=== PATIENT | male | born 1965 | race Caucasian/White ===

== ENCOUNTER 2023-01-11 07:00 | Outpatient (RCR) | payer OTHER, SELFPAY ==
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
--- NOTE | 2023-01-11 07:49 | HP.PTREVAL_ITS ---
Re-Evaluation Intro: MARY FIGUEROA, It has been my pleasure to treat WILBERT JACOB over the last 7 visits for CERV DDD, CERV ARTHRITIS, ARM WEAKNESS AND ARM NUMBNESS. Please see the progress note below for an update on the physical therapy plan of care! Subjective Subjective: PATIENT REPORTS HE DID PRETTY GOOD AFTER LAST TREATMENT. PATIENT REPORTS HE COULDN'T GET COMFORTABLE LAST NIGHT AND IT IS MORE STIFF THIS MORNING FOR NO APPARENT REASON. I THINK MAYBE MY SYMPTOMS ARE plateauing. Objective Objective/Function: PATIENT WAS SEEN TODAY FOR RE-ASSESSMENT OF PROGRESS TOWARD THE SET PT GOALS AND THE NEED FOR FURTHER PHYSICAL THERAPY VS READINESS FOR DISCHARGE. PATIENT HAS MADE SOME PROGRESS WITH PT BUT CONTINUES TO HAVE SIGNIFICANT SX'S AND PHYSICIAN RE-ASSESSMENT IS RECOMMENDED. PATIENT IS AGREEABLE. UPON EXAM TODAY: Motor deficit: PJ UE'S GROSSLY 5/5 WITH MMT'ING WITH R SOFTWARE TEST DEVELOPER STRENGTH 101 LBS AND LEFT 85 LBS. PATIENT IS R HAND DOMINANT. Dural Signs: POSITIVE PJ UE'S L>R. Cervical Mvmt Loss: Flex: NIL - NECK BURNING Pro: NIL - NECK BURNING Ext: MOD - NE Ret: MOD- NE EXCEPT A LITTLE NECK TIGHTNESS. RSB: MIN LSB: MIN R Rot: MIN L Rot: MIN PJ ROT AND SB TESTING PROVOKE CO OF A LITTLE NECK TIGHTNESS. NW A RESULT OF TESTING TODAY. OTHER: HEP INSTRUCTION. PATIENT TOLERATED TRACTION WELL TODAY AND DEMO'D INCREASED CERVICAL ROM AFTER TRACTION INTO PJ SB. Plan Plan Plan: HOLD PT UNTIL PHYSICIAN RE-CHECK Balance/Gait/Functional tests Balance/Special Test Scores Oswestry Neck Score: 18 Goals Goals Goal 1:: DECREASE C/O NECK AND PJ UE SX'S Goal Time Frame: 4-6 Weeks Goal 2:: IMPROVE PERSONAL CARE, LIFTING, READING, SLEEP, WORK, DRIVING, AND RECREATIONAL FUNCTION Goal Time Frame: 4-6 Weeks Goal 3:: INSTRUCT IN PROPHYLAXIS Goal Time Frame: 4-6 Weeks Anticipated Interventions Anticipated Interventions Patient/Client Instruction: Educate patient on: Condition, Plan of Care and Risk Factors For the Purpose of:: To improve self management Therapeutic Exercise to Include: Strength training, Body mechanics, Postural training, Flexibilty training, Neuromotor development and Scapular St rength/Stabilization For the Purpose of:: To decrease pain, To increase ROM, To improve muscle performance and motor function, To increase tolerance to activity/condition/position and To improve ability of physical actions for home/community/work/leisure Manual Therapy Techniques to Include: Mobilization, Functional dry needling and Soft tissue mobilization For the Purpose of:: To decrease pain, To increase ROM, To improve nutrient delivery to tissue, To improve muscle performance and motor function, To increase tolerance to activity/condition/position and To improve ability of physical actions for home/community/work/leisure Ultrasound (thermal/non thermal): Yes For the Purpose of:: To decrease pain and To improve nutrient delivery to tissue Re-Evaluation Ending Re-evaluation ending: Please do not hesitate to contact me at [phone] by phone or if you have questions or concerns regarding this new plan of care! Sincerely, Maricarmen Rodriguez, PT, Cert MDT
--- NOTE | 2023-03-12 13:25 | HP.PTDCNRP_ITS ---
Patient Information Patient Information: WILBERT JACOB was seen in my office for initial evaluation on 12/11/22. The following Plan of Care was established for this patient: POC Established Initial Frequency: 1-2x /Week Initial Duration: 4-6 Weeks Anticipated Interventions Patient/Client Instruction: Educate patient on: Condition, Plan of Care and Risk Factors For the Purpose of:: To improve self management Therapeutic Exercise to Include: Strength training, Body mechanics, Postural training, Flexibilty training, Neuromotor development and Scapular Strength/Stabilization For the Purpose of:: To decrease pain, To increase ROM, To improve muscle performance and motor function, To increase tolerance to activity /condition/position and To improve ability of physical actions for home/community/work/leisure Manual Therapy Techniques to Include: Mobilization, Functional dry needling and Soft tissue mobilization For the Purpose of:: To decrease pain, To increase ROM, To improve nutrient delivery to tissue, To improve muscle performance and motor function, To inc rease tolerance to activity/condition/position and To improve ability of physical actions for home/community/work/leisure Ultrasound (thermal/non thermal): Yes For the Purpose of:: To decrease pain and To improve nutrient delivery to tissue Last Seen Last Seen: This patient was last seen in our office 01/11/23. Pertinent comments regarding their Physical therapy will appear below: This patient has not returned to Physical Therapy and is appropriate to return to MD for further follow-up as needed. At this point I will be discontinuing this patient from physical therapy. I would be happy to see this patient again in the future if found appropriate by the physician. Thank you! Maricarmen Rodriguez, PT, Cert MDT Balance/Gait/Functional tests Balance/Special Test Scores Oswestry Neck Score: 18
== END 2023-01-11 19:00 | disposition home or self-care (01) ==
LOC: PT 07:00
DX: M50.30 Other cervical disc degeneration, unspecified cervical region (principal); M47.812 Spondylosis without myelopathy or radiculopathy, cervical region; M62.81 Muscle weakness (generalized)
CPT/HCPCS: 97012; 97035; 97112; 97140; 97162; 97164; 97530

== ENCOUNTER → 2025-04-22 | Outpatient (CLI) | payer OTHER, SELFPAY ==
--- NOTE | 2025-04-22 07:20 | US_ITS ---
PROCEDURE: ABDOMEN LIMITED 04/22/2025 REASON FOR EXAM: LUQ PAIN TECHNIQUE: Procedure Code: USABDL Modality: US Procedure: ABDOMEN LIMITED COMPARISON: None FINDINGS: Spleen: Normal. 10.1 x 4.2 x 4.1 cm. Left kidney: 11.2 x 5.4 x 4.5 cm. The renal cortex measures 1.4 cm in thickness. There is an upper pole calyceal stone measuring 5 mm. There is an upper pole cortical cyst measuring 1.6 x 1.5 x 1.3 cm. The cyst appears to have a mural nodule. Pancreas: Normal. Other: No evidence of ascites. US/Abdomen Limited IMPRESSION: Cortical cyst with a mural nodule in the left kidney. Recommendation: MR imaging of the abdomen with and without IV contrast. Reading Location: [place] [id number]
--- OUTSIDE RECORDS SUMMARY | 2025-04-22 07:27 | XMS RPT_ITS | CCD ---
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 distress Neck: No JVD, no bruits CVS: S1, S2, No m/r/g Chest: CTAB. Tender to palpation over the left sided ICS Abd: Soft, nontender, no masses, BS present Ext: No pedal edema, pedal pulses 2+ bilaterally Neuro: No focal neurological deficits CARDIOVASCULAR MEDICINE TESTING: Last ECHO Result Conclusion ECHO Collected: 12/17/2024 8:06 AM (Final result) Impression: CONCLUSIONS: - Exam indication: Chest Pain - The left ventricle is normal in size. Left ventricular systolic function is normal. EF = 60 ? 5% (2D biplane) Normal left ventricular diastolic function. - The right ventricle is normal in size. Right ventricular systolic function is normal. - The right atrial cavity is mildly dilated. - The visualized aorta is dilated with a maximal dimension of 4.1 cm. - Estimated right ventricular systolic pressure is 20 mmHg consistent with normal pulmonary artery pressures. Estimated right atrial pressure is 8 mmHg based on IVC assessment. - Exam was compared with the prior echocardiographic exam performed on 01/17/24. Valvular regurgitation appears less on today's exam. * * * Final * * * Last EKG Result Conclusion ECG COMPLETE Collected: 11/05/2024 8:04 AM (Final result) Impression: NORMAL SINUS RHYTHM Confirmed by MD GOMEZ, ALISA ( (more content not included)... Normal [facility] ECHOon 12-17-2024 Echocardiography Echocardiography Rep ort: Transthoracic Echo [facility] Date of service: 12/17/2024 8:06:51 AM Ordering physician: GIANA TAY Exam indication: Chest Pain Technologist: Donna Redd ANUM Interpreting physician: Christiano Abrams MD PATIENT: Name: MR. WILBERT LAWRENCE : 1965 Age: 59 years Gender: M History of hypertension. Primary rhythm: sinus. Height: 177.80 cm BSA: 1.92 m Weight: 74.84 kg BMI: 23.7 kg/m Heart rate 78 bpm Blood pressure 155/96 mmHg Color Doppler was utilized to interrogate the cardiac valves assessed and spectral Doppler was utilized to determine the flow velocities and pressure gradients reported in this exam. MEASUREMENTS: Value Indexed Normal Max aortic dimension 4.1 cm Ao < 3.8 Left atrium diameter 2.8 cm (2D) Left atrial volume 23 ml (4ch A-L) 12 ml/m Sharda <= 34 LV ID (diastole) 4.1 cm (2D) 2.13 cm/m LV ID (systole) 2.6 cm (2D) 1.35 cm/m IVS, leaflet tips 0.9 cm (2D) Posterior wall thickness 1.0 cm (2D) Left ventricular mass 126 g (2D) 66 g/m LV stroke volume 53 ml (2D biplane) LV end diastolic volume 89 ml (2D biplane) 46.3 ml/m 34<=EDVi<75 LV end systolic volume 36 ml (2D biplane) 18.6 ml/m Ejection Fraction 60 % (2D biplane) EF > 52 FINDINGS: LEFT VENTRICLE The left ventricle is normal in size. Left ventricular systolic function is normal. Normal left ventricular diastolic function. Mitral annular lateral E/e': 6.0. Mitral annular septal E/e': 7.5. Wall Motion: All scored segments are normal. RIGHT VENTRICLE The right ventricle is normal in size. Right ventricular systolic function is normal. RV systolic tissue Doppler velocity is 14.6 cm/s. Tricuspid annular displacement is 2.5 cm. Estimated right ventricular systolic pressure is 20 mmHg consistent with normal pulmonary artery pressures. Estimated right atrial pressure is 8 mmHg based on IVC assessment. LEFT ATRIUM The left atrial cavity is normal in size. RIGHT ATRIUM The right atrial cavity is mildly dilated. Inferior Vena Cava: The inferior vena cava appears normal measuring 1.7 cm. The vessel decreases less than 50 percent with inspiration. MITRAL VALVE There is trace (trace - 1+) mitral valve regurgitation due to prolapse. There is no calcification. The pressure half time is 69 msec. The peak mitral E/A ratio is 0.94. The average mitral E/e' ratio is 6.7. The mitral flow deceleration time is 238 msec. TRICUSPID VALVE The tricuspid valve leaflets are structurally normal. There is trace (trace - 1+) tricuspid valve regurgitation. AORTIC VALVE The aortic valve cusps are structurally normal. There is no aortic valve regurgitation. Tricuspid aortic valve. PULMONIC VALVE The pulmonic valve cusps are structurally normal. There is trace pulmonic valve regurgitation. The peak gradient is 3 mmHg. AORTA The visualized aorta is dilated. Measurements - Aortic valve annulus 2.0 cm. Sinus: 4.1 cm. Mid ascending aorta 3.6 cm. PULMONARY ARTERIES The pulmonary arteries are unseen or not interrogated. INTERATRIAL SEPTUM There is no evidence of intracardiac shunting as detected by Doppler. INTERVENTRICULAR SEPTUM There is no flow through the interventricular septum as detected by Doppler. PERICARDIUM There is no pericardial effusion. CONCLUSIONS: - Exam indication: Chest Pain - The left ventricle is normal in size. Left ventricular systolic function is normal. EF = 60 5% (2D biplane) Normal left ventricular diastolic function. - The right ventricle is normal in size. Right ventricular systolic function is normal. - The right atrial cavity is mildly dilated. - The visualized aorta is dilated with a maximal dimension of 4.1 cm. - Estimated right ventricular systolic pressure is 20 mmHg consistent with normal pulmonary artery pressures. Estimated right atrial pressure is 8 mmHg based on IVC assessment. - Exam was compared with the prior CC echocardiographic exam performed on 01/17/24. Valvular regurgitation appears less on today's exam. * * * Final * * * [employer] : [id number] Normal [facility] [id number] 11-09-2024 Ventricular Rate : 8 1 BPM Atrial Rate : 81 BPM P-R Interval : 150 ms QRS Duration : 84 ms Q-T Interval : 366 ms QTC Calculation(Bazett) : 425 ms Calculated P Gillette : 63 degrees Calculated R Gillette : 49 degrees Calculated T Gillette : 54 degrees NORMAL SINUS RHYTHM Confirmed by MD DYER QARAB ([id number]) on 11/09/2024 6:06:13 PM NAME : WILBERT LAWRENCE PID : [id number] : 1965 Gender : Male Race : ORD : Procedure Date : Nov 05 2024 08:04:20 Edit Date : Nov 09 2024 18:06:15 Diagnosis: NORMAL SINUS RHYTHM Confirmed by MD DYER QARAB ([id number]) on 11/09/2024 6:06:13 PM Test Reason : Location : 211 : [facility] Overread By : MD DYER QARAB Edited By : MD DYER QARAB Referred By : Giana Tay Acquired by : kenya drummond, [facility], Radiologi MD eva - 11/09/2024 Ventricular Rate : 81 BPM Atrial Rate : 81 BPM P-R Interval : 150 ms QRS Duration : 84 ms Q-T Interval : 366 ms QTC Calculation(Bazett) : 425 ms Calculated P Gillette : 63 degrees Calculated R Gillette : 49 degrees Calculated T Gillette : 54 degrees NORMAL SINUS RHYTHM Confirmed by MD DYER QARAB ([id number]) on 11/09/2024 6:06:13 PM NAME : WILBERT LAWRENCE PID : [id number] : 1965 Gender : Male Race : ORD : Procedure Date : Nov 05 2024 08:04:20 Edit Date : Nov 09 2024 18:06:15 Diagnosis: NORMAL SINUS RHYTHM Confirmed by MD DYER QARAB ([id number]) on 11/09/2024 6:06:13 PM Test Reason : Location : 211 : [facility] Overread By : MD DYER QARAB Edited By : MD DYER QARAB Referred By : Giana Tay Acquired by : kenya drummond, [facility] [id number] By: Radiologist Radiology on 11-09-2024 [facility] [employer] Work Phone: CNOVon 11-05-2024 CNOV Office Visit (CARDMM ) WILBERT LAWRENCE ([id number]) 1965 M Date Time Provider Department 11/05/24 8:00 AM GIANA TAY CARDMAHI During your visit today, we recorded the following information about you: Pulse Blood pressure Weight 81/minute 118/74 75 kg Giana Tay APRN.CNP 11/05/2024 8:37 AM [facility] [place] [facility] Department of Cardiovascular Medicine SECTION OF CLINICAL CARDIOLOGY OUTPATIENT VISIT DATE November 05, 2024 OUTPATIENT VISIT TYPE ESTABLISHED Elements of this note, including but not limited to HPI, ROS, Physical Exam, Assessment and Plan were copied and pasted from previous office visit notes completed within our department. Updates have been made where appropriate/noted and reflect current exam and medical decision making from date of this visit. Patient Name: Wilbert Lawrence : 1965 PRIMARY CARE PHYSICIAN: Salvatore Lock MD, MD CHIEF COMPLAINT: Patient presents with: Follow Up: Intermittent chest pain Interval Hx: Mr. Lawrence comes for a follow up visit. The last office visit visit with Kary Lin CNP was . The patient is a 59-year-old male presenting for evaluation of recurrent left upper chest pain. He has a PMH of Lyme disease, elevated calcium score. The patient reports experiencing intermittent left upper chest pain over the past few years, with no significant change in symptoms since his stress test in August of last year. The pain occurs both at rest and during exertion, such as while walking, and is not exacerbated or alleviated by any specific activities or positions. It is sometimes noticeable with deep inspiration but does not worsen when lying flat. The pain is localized and does not radiate. Episodes typically last a few minutes, occasionally up to 10 minutes, and resolve spontaneously without the need for analgesics. He has not tried taking ibuprofen, Aleve, Motrin, or Tylenol for relief. He has attempted sucralfate without improvement, suspecting a possible gastrointestinal cause. He denies any recent viral illnesses, palpitations, tachycardia, or significant dyspnea, though he notes a slight increase in dyspnea compared to previous years. He denies symptoms of sleep apnea, such as nocturnal awakenings with choking or gasping for air, and does not use CPAP or BiPAP. He has a significant family history of cardiovascular disease on his father's side, including early-onset CAD and myocardial infarctions. His grandfather at age 40, and his father and uncle both underwent quadruple bypass surgeries. His mother had a history of aneurysms and at 94 years old. He denies any personal history of hiatal hernia. He maintains an active lifestyle, living [place] farm and walking regularly on trails, even in adverse weather conditions. He also cares for sheep, which requires physical activity. He follows a diet that includes eggs and sausage or her daily, along with meat and vegetables for dinner. He has eliminated wheat from his diet. He takes vitamin E and a multivitamin but does not consistently adhere to supplement use. He denies daily alcohol consumption. He has a history of head trauma and is planning to undergo a brain scan for baseline assessment. He recently had blood work done in preparation for this scan, including a lipid panel. A coronary artery calcium score performed in 2022 was 126.8. He does not take medication for hypertension and reports home blood pressure readings around 118/70 mmHg. His most recent echocardiogram showed normal wall motion and an LVEF of 55%. He has a known leaky mitral valve, which is monitored annually. EKG today shows NSR, possible LAE. Ventricular rate 81 bpm. . I have personally reviewed the Electrocardiogram. PHYSICAL EXAMINATION: Vitals: BP 118/74 Pulse 81 Wt 75 kg (165 lb 5.5 oz) SpO2 98% BMI 23.72 kg/m? General: Alert AND oriented, no acute distress Skin: Normal HEENT: Pupils equal, round. Oral cavity, oropharynx clear Neck: Supple, no mass Breast: Deferred Respiratory: Clear to auscultation, bilaterally Cardiovascular: Jugular venous pressure normal. Regular rate and rhythm, normal S1 and S2, no murmurs or added sounds Abdomen: Soft, non-tender, non-distended, no masses palpable, no hepatosplenomegaly, normal bowel sounds Genitourinary: Deferred MSK: No joint swelling, erythema, or tenderness Extremities: No clubbing, cyanosis, or edema IMPRESSION/PLAN: 1. Ascending aorta dilation (I77.810) 2. Mitral valve insufficiency, unspecified etiology (I34.0) Annual echocardiogram monitoring for ascending aorta dilation and mitral valve insufficiency. Previous echocardiogram showed normal wall motion and ejection fraction of 55%. No current medication for blood pressure management; BP is (more content not included)... Normal [facility] [id number] 11-05-2024 ECG01 Ventricular Rate : 8 1 BPM Atrial Rate : 81 BPM P-R Interval : 150 ms QRS Duration : 84 ms Q-T Interval : 366 ms QTC Calculation(Bazett) : 425 ms Calculated P Gillette : 63 degrees Calculated R Gillette : 49 degrees Calculated T Gillette : 54 degrees NORMAL SINUS RHYTHM Confirmed by MD DYER QARAB ([id number]) on 11/09/2024 6:06:13 PM NAME : WILBERT LAWRENCE PID : [id number] : 1965 Gender : Male Race : ORD : Procedure Date : Nov 05 2024 08:04:20 Edit Date : Nov 09 2024 18:06:15 Diagnosis: NORMAL SINUS RHYTHM Confirmed by MD DYER QARAB ([id number]) on 11/09/2024 6:06:13 PM Test Reason : Location : 211 : [facility] Overread By : MD DYER QARAB Edited By : MD DYER QARAB Referred By : Giana Tay Acquired by : Peyton zambrano ma [facility] Radiology Study observation (narrative) [facility] 07-14-2024 [facility] Telephone ([facility]) APOLLOWILBERT JAMES ([id number]) 1965 M Date Time Provider Department 07/14/24 SHERLY GUEVARA During your visit today, we recorded the following information about you: Kary Zarate 07/14/2024 10:06 AM Signed Patient reports having left sided chest pain that comes and goes. Pain occurs at least once daily at various times during various activities, rates pain as a 5/10. Patient was scheduled for first available office visit and placed on wait list. Patient is requesting a return call to discuss pain at [phone]. Nimo Johnson, RN 07/14/2024 12:04 PM Signed Spoke with pt. States he has had this pain for about a year but its happening more frequent. Happens more when he is exerting himself. Also has some SOB occasionally with exertion. Describes the pain as a burning sensation in his rib cage above his heart. Denies pain radiating up neck or down arm. Rates pain 5/10. Pt is scheduled with [facility] in October. Advised pt to go to ER is pain increased or is persistent. - ____ SLIM: 02/27/2024 with Vinicius CARRASCO [employer] SYSTEMS ENGINEER Conclusion: (I34.1) Mitral valve prolapse (primary encounter diagnosis) Comment: He is asymptomatic. Plan: ECHO Recheck echo next year. (I77.810) Ascending aorta dilatation (HCC) Comment: Per echo his aorta has not changed. Plan: Continue same lifestyle emphasis to decrease stress reaction. He is aware of how to do this PLAN AND RECOMMENDATIONS: Continue same medications. Echocardiogram 2024 Ashleigh Delong APRN.DONALD 07/16/2024 2:59 PM Signed Called and spoke with patient. He reports he is getting almost daily episodes of chest discomfort similar to what is described below. This typically occurs while he is walking. [place] every day [place]. No other alleviating or aggravating factors. He reports this is the same symptoms he was having last year when he had a stress test (no findings) although feels they may be more frequent now. He does not monitor his blood pressure at home but does have a blood pressure cuff. I have asked him to monitor his blood pressure over the weekend and get back with me on Saturday. Would consider adding antianginal at that time. We discussed that should pain persist next step would be to proceed with a heart catheterization. Warning symptoms and red flags also reviewed and he is aware when he should be evaluated in the ED. Ashleigh Delong APRN.[employer] Allergies As of Date: 07/14/2024 Noted Allergy Reaction LYRICA (PREGABALIN) 12/20/2016 7 - Swelling Date Reviewed: 07/15/2023 Reviewed by: Chante Jovel MA - Fully Assessed Reason for Visit: Pain [78] Prescriptions as of 07/17/2024 - VITAMIN E ORAL Take by mouth. - clomiPHENe (CLOMID) 50 mg tablet Take 50 mg by mouth once daily. 1/2 tablet three times per week - anastrozole (ARIMIDEX) 1 mg tablet Take 1 mg by mouth once daily. 1/4 tab four times per week - doxycycline 20 mg tablet Take 20 mg by mouth twice daily. - gabapentin (NEURONTIN) 400 mg capsule Take 1 capsule by mouth twice daily for 90 days. - cholecalciferol, vitamin D3, (VITAMIN D3 ORAL) Take 1 tablet by mouth once daily. 10,000 international unit(s) daily - albuterol HFA (PROVENTIL HFA, VENTOLIN HFA) 90 mcg/actuation inhaler Inhale 2 Puffs as instructed every 6 hours as needed. - finasteride (PROSCAR) 5 mg tablet as needed. - diclofenac sodium (VOLTAREN) 1 % topical gel APPLY TO THE AFFECTED AREA(S) FOUR TIMES DAILY - MAGNESIUM ORAL Take by mouth. - MULTIVITAMIN ORAL Take by mouth. 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] 12/20/2016 Nuclear cataract [[id number]] 12/20/2016 Refractive error [H52.7] 01/11/2017 2021 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/24/2018 Hip pain [M25.559] 03/24/2018 Femoroacetabular impingement [M25.859] 03/24/2018 Acetabular labrum tear [S73.199A] 03/24/2018 MVP (mitral valve prolapse) [I34.1] 04/07/2018 Ascending aorta dilatation (HCC) [I77.810] 02/15/2023 Encounter Status:[facility] WILBERT LAWRENCE ([id number]) 1965 M Date Time Provider Department 06/16/24 HERMILO NELSON During your visit today, we recorded the following information about you: Kary Zarate 06/16/2024 10:52 AM Signed Left and message cancelling the PT's cardiology visit on 03/03/25. Left instructions for PT to contact the office to reschedule. Allergies As of Date: 06/16/2024 Noted Allergy Reaction LYRICA (PREGABALIN) 12/20/2016 7 - Swelling Date Reviewed: 07/15/2023 Reviewed by: Chante Jovel MA - Fully Assessed Reason for Visit: Appointment Cancelled [1023] Prescriptions as of 06/16/2024 - VITAMIN E ORAL Take by mouth. - clomiPHENe (CLOMID) 50 mg tablet Take 50 mg by mouth once daily. 1/2 tablet three times per week - anastrozole (ARIMIDEX) 1 mg tablet Take 1 mg by mouth once daily. 1/4 tab four times per week - doxycycline 20 mg tablet Take 20 mg by mouth twice daily. - gabapentin (NEURONTIN) 400 mg capsule Take 1 capsule by mouth twice daily for 90 days. - cholecalciferol, vitamin D3, (VITAMIN D3 ORAL) Take 1 tablet by mouth once daily. 10,000 international unit(s) daily - albuterol HFA (PROVENTIL HFA, VENTOLIN HFA) 90 mcg/actuation inhaler Inhale 2 Puffs as instructed every 6 hours as needed. - finasteride (PROSCAR) 5 mg tablet as needed. - diclofenac sodium (VOLTAREN) 1 % topical gel APPLY TO THE AFFECTED AREA(S) FOUR TIMES DAILY - MAGNESIUM ORAL Take by mouth. - MULTIVITAMIN ORAL Take by mouth. 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] 12/20/2016 Nuclear cataract [[id number]] 12/20/2016 Refractive error [H52.7] 01/11/2017 2021 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 ,R07.9 Chest pain, unspecified COMPARISON: None. ACCESSION NUMBER(S): [id number] ORDERING CLINICIAN: SALVATORE LOCK FINDINGS: THORACIC SPINE AP, LATERAL AND SWIMMER'S VIEWS The thoracic vertebrae are normal in height. Decrease in the height of the T7-T8, T8-T9 and T9-T10 intervertebral discs is seen secondary to degenerative disc disease. Small osteophytes are seen along the anterior margins of the thoracic spine. The pedicles and posterior elements are intact. The C7-T1 alignment is maintained. 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 MACRO: None Signed by: Robert Mena 05/11/2024 3:35 PM Dictation workstation: [id number] Radiology, Radiologi MD eva - 05/11/2024 Interpreted By: Robert Mena, STUDY: XR THORACIC SPINE 3 VIEWS; ; 05/07/2024 11:22 am INDICATION: Signs/Symptoms:LEFT SIDED CHEST PAIN. ,R07.9 Chest pain, unspecified COMPARISON: None. ACCESSION NUMBER(S): [id number] ORDERING CLINICIAN: SALVATORE LOCK FINDINGS: THORACIC SPINE AP, LATERAL AND SWIMMER'S VIEWS The thoracic vertebrae are normal in height. Decrease in the height of the T7-T8, T8-T9 and T9-T10 intervertebral discs is seen secondary to degenerative disc disease. Small osteophytes are seen along the anterior margins of the thoracic spine. The pedicles and posterior elements are intact. The C7-T1 alignment is maintained. 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 MACRO: None Signed by: Robert Mena 05/11/2024 3:35 PM Dictation workstation: [id number] [facility] XR Thoracic spine 3 ViewsOrd ered By: Radiologist Radiology on 05-11-2024 [facility] Work Phone: XR Ribs Views and Chest PAon 05-10-2024 Interpreted By: Sania Peng, STUDY: XR RIBS 2 VIEWS LEFT WITH CHEST PA OR AP; Chest single AP view and left ribs, multiple views. INDICATION: Signs/Symptoms:LEFT SIDED CHEST PAIN. COMPARISON: Chest radiograph 08/31/2022 ACCESSION NUMBER(S): [id number] ORDERING CLINICIAN: SALVATORE LOCK FINDINGS: The cardiac silhouette size is within normal limits. There is no focal consolidation, edema or pneumothorax. No sizeable pleural effusion. No displaced left rib fractures. No acute osseous abnormality. IMPRESSION: No displaced left rib fractures or pneumothorax. No acute cardiopulmonary process. MACRO: None. Signed by: Sania Peng 05/10/2024 6:43 PM Dictation workstation: [id number] Radiology Radiologfred velasquez MD - 05/10/2024 Interpreted By: Sania Peng, STUDY: XR RIBS 2 VIEWS LEFT WITH CHEST PA OR AP; Chest single AP view and left ribs, multiple views. INDICATION: Signs/Symptoms:LEFT SIDED CHEST PAIN. COMPARISON: Chest radiograph 08/31/2022 ACCESSION NUMBER(S): [id number] ORDERING CLINICIAN: SALVATORE LOCK FINDINGS: The cardiac silhouette size is within normal limits. There is no focal consolidation, edema or pneumothorax. No sizeable pleural effusion. No displaced left rib fractures. No acute osseous abnormality. IMPRESSION: No displaced left rib fractures or pneumothorax. No acute cardiopulmonary process. MACRO: None. Signed by: Sania Peng 05/10/2024 6:43 PM Dictation workstation: [id number] [facility] XR Ribs Views and Chest PAOr dered By: Radiologist Radiology on 05-10-2024 [facility] Work Phone: No Panel Informationon 05-07 Radiology Study observation (narrative) [facility] XR RIBS 2 VIEWS LEFT WITH CH EST PA OR APon 05-07-2024 XR RIBS 2 VIEWS LEFT WITH CHEST PA OR AP Interpreted By: Sania Peng, STUDY: XR RIBS 2 VIEWS LEFT WITH CHEST PA OR AP; Chest single AP view and left ribs, multiple views. INDICATION: Signs/Symptoms:LEFT SIDED CHEST PAIN. COMPARISON: Chest radiograph 08/31/2022 ACCESSION NUMBER(S): [id number] ORDERING CLINICIAN: SALVATORE LOCK FINDINGS: The cardiac silhouette size is within normal limits. There is no focal consolidation, edema or pneumothorax. No sizeable pleural effusion. No displaced left rib fractures. No acute osseous abnormality. IMPRESSION: No displaced left rib fractures or pneumothorax. No acute cardiopulmonary process. MACRO: None. Signed by: Sania Peng 05/10/2024 6:43 PM Dictation workstation: [id number] [facility] XR THORACIC SPINE 3 VIEWSon 05-07-2024 XR THORACIC SPINE 3 VIEWS Interpreted By: Robert Mena, STUDY: XR THORACIC SPINE 3 VIEWS; ; 05/07/2024 11:22 am INDICATION: Signs/Symptoms:LEFT SIDED CHEST PAIN. ,R07.9 Chest pain, unspecified COMPARISON: None. ACCESSION NUMBER(S): [id number] ORDERING CLINICIAN: SALVATORE LOCK FINDINGS: THORACIC SPINE AP, LATERAL AND SWIMMER'S VIEWS The thoracic vertebrae are normal in height. Decrease in the height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 noneRVSP 19.97 mmHg nonePulmonic Valve/Qp:QsName Value Normal Range PV Vmax 1.02 m/sec (0.6 - 0.9)PV VTI 18.9 cm nonePV peak gradient 4.16 mmHg nonePV mean gradient 2 mmHg noneElectronically Signed at 05/03/2017 11:35:04 by: Kary Coleman [facility] Ambulatory Echocardiogram completeon Echocardiogram complete Transthoracic Echocardiogram Patient: NIDIA ATKINS [facility] Rec#: [id number] (Age): 1965(51y) Height: 177.8(cm)/69(in Study Date: 05/03/2017 Weight: 78.93(kg)/174(l Room#: BSA: [id number] Type: Loc: Sex: M Reading: Kary Arellano M.D. Referring: Salvatore Lock MD Ordering Patrick Hernandez D.O. Position Clerk: Veronica Ordonez RN RDCS History: MV prolapse. Summary: Patient identity verified (pause and confirm). Current HP present on patient chart. Procedure explained and patient verified understanding. Consent obtained for procedure. 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 Mild MR. Aortic root measures 3.9cm at the sinuses, upper limits of normal based on BSA and age. Tubular portion of the AAo measures 3.5cm. Findings Reason For Study: Chest pain. Mitral valve disorder. Murmur. Shortness of breath. Left Ventricle: The left ventricular chamber size is normal. There is normal left ventricular systolic function. The estimated ejection fraction is 60-65%. Normal left ventricular diastolic filling is observed. Left Atrium: The left atrial chamber size is normal. Right Ventricle: The right ventricular cavity size is normal. The right ventricular global systolic function is normal. Right Atrium: The right atrial cavity size is normal. Aortic Valve: The aortic valve is trileaflet. There is no hemodynamically significant stenosis. There is no evidence of aortic regurgitation. Mitral Valve: The mitral valve leaflets appear myxomatous. The chordae appears redundant. There is no evidence of mitral stenosis. There is mild mitral regurgitation. Tricuspid Valve: The tricuspid valve leaflets are normal. There is no tricuspid stenosis. There is a trace tricuspid regurgitation. The right ventricular systolic pressure is 19.97 mmHg. Pulmonic Valve: The pulmonic valve appears normal. There is no pulmonic stenosis. There is no evidence of pulmonic regurgitation. Pericardium: The pericardium appears normal. Aorta: The aorta appears normal. Venous: The inferior vena cava appears normal. HR BP 128/92 Measurements Chambers 2D Name Value Normal Range IVSd (2D) 1.02 cm none LVPWd (2D) 0.92 cm none IVS:LVPW ratio (2D) 1.11 ratio none LVIDd (2D) 3.81 cm none LVIDs (2D) 2.49 cm none LVIDd (2D) index 1.94 cm/m2 none LVIDs (2D) index 1.27 cm/m2 none LV FS (2D) 34.65 % none LV FS (Teichholz) (2D) 34.6 % none LV FS (cube) (2D) 34.6 % none EF Teichholz (2D) 64.55 % none Ao root diameter (2D) 3.9 cm none Aortic root diameter (2D) inde1.98 cm/m2 none Volumes/Mass Name Value Normal Range LA ESV SP 4CH (MOD) 35 ml none LA ESV SP 2CH (MOD) 31 ml none LA ESV BP (MOD) 36 ml none LA ESV BP (MOD) index 18.3 ml/m2 none LV EDV SP 4CH (MOD) 88 ml none LV ESV SP 4CH (MOD) 30 ml none EF SP 4CH (MOD) 65.91 % none LV EDV SP 2CH (MOD) 97 ml none LV ESV SP 2CH (MOD) 35 ml none EF SP 2CH (MOD) 63.92 % none LV EDV BP 92 ml none LV ESV BP 33 ml none BP EF (MOD) 64.13 % none LV EDV BP index 46.76 ml/m2 none LV ESV BP index 16.77 ml/m2 none LV mass (2D) 112.34 g none LV mass (2D) index 57.1 g/m2 none RWT 0.5 ratio none Diastolic/Systolic Function Name Value Normal Range MV E-wave Vmax 0.54 m/sec none MV deceleration time 162 msec none MV A-wave Vmax 0.58 m/sec none MV E:A ratio 0.94 ratio (1.1 - 1.5) LV septal e' Vmax 0.1 m/sec none LV lateral e' Vmax 0.1 m/sec none LV average e' Vmax 0.1 m/sec none LV E:e' septal ratio 5.17 ratio none LV E:e' lateral ratio 5.69 ratio none LV average E:e' ratio 5.42 ratio none TAPSE 2.8 cm none Aortic Valve Name Value Normal Range AV Vmax 1.07 m/sec (1 - 1.7) AV VTI 20.2 cm none AV peak gradient 4.58 mmHg (Less Than 36) AV mean gradient 3 mmHg (Less Than 20) LVOT Vmax 0.88 m/sec (0.7 - 1.1) LVOT VTI 16.1 cm none LVOT peak gradient 3 mmHg none LVOT mean gradient 2 mmHg none DOI (VTI) 0.8 ratio none DOI (Vmax) 0.82 ratio none Mitral Valve Name Value Normal Range MV Vmax 0.68 m/sec (0.6 - 1.3) MV VTI 17.1 cm none MV peak gradient 1.83 mmHg none MV mean gradient 1 mmHg none MV PHT 41 msec none MVA (PHT) 5.37 cm2 none Tricuspid Valve Name Value Normal Range TR Vmax 2.06 m/sec none TR peak gradient 16.97 mmHg none RAP 3 mmHg none RVSP 19.97 mmHg none Pulmonic Valve/Qp:Qs Name Value Normal Range PV Vmax 1.02 m/sec (0.6 - 0.9) PV VTI 18.9 cm none PV peak gradient 4.16 mmHg none PV mean gradient 2 mmHg none Electronically Signed at 05/03/2017 11:35:04 by: Kary Arellano M.D. Invalid Interpretation Code [facility] Echocardiogram complete Interface, Rad In Heartlab Xper Echopacs - 05/03/2017 11:36 AM EST Transthoracic Echocardiogram Patient: NIDIA ATKINS [facility] Rec#: [id number] (Age): 1965(51y) Height: 177.8(cm)/69(in Study Date: 05/03/2017 Weight: 78.93(kg)/174(l Room#: BSA: [id number] Type: Loc: Sex: M Reading: Kary Arellano M.D. Referring: Salvatore Lock MD, D.O. Position Clerk: Veronica Ordonez RN RDCS History: MV prolapse. Summary: Patient identity verified (pause and confirm). Current HP present on patient chart. Procedure explained and patient verified understanding. Consent obtained for procedure. 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 Mild MR. Aortic root measures 3.9cm at the sinuses, upper limits of normal based on BSA and age. Tubular portion of the AAo measures 3.5cm. Findings Reason For Study: Chest pain. Mitral valve disorder. Murmur. Shortness of breath. Left Ventricle: The left ventricular chamber size is normal. There is normal left ventricular systolic function. The estimated ejection fraction is 60-65%. Normal left ventricular diastolic filling is observed. Left Atrium: The left atrial chamber size is normal. Right Ventricle: The right ventricular cavity size is normal. The right ventricular global systolic function is normal. Right Atrium: The right atrial cavity size is normal. Aortic Valve: The aortic valve is trileaflet. There is no hemodynamically significant stenosis. There is no evidence of aortic regurgitation. Mitral Valve: The mitral valve leaflets appear myxomatous. The chordae appears redundant. There is no evidence of mitral stenosis. There is mild mitral regurgitation. Tricuspid Valve: The tricuspid valve leaflets are normal. There is no tricuspid stenosis. There is a trace tricuspid regurgitation. The right ventricular systolic pressure is 19.97 mmHg. Pulmonic Valve: The pulmonic valve appears normal. There is no pulmonic stenosis. There is no evidence of pulmonic regurgitation. Pericardium: The pericardium appears normal. Aorta: The aorta appears normal. Venous: The inferior vena cava appears normal. HR BP 128/92 Measurements Chambers 2D Name Value Normal Range IVSd (2D) 1.02 cm none LVPWd (2D) 0.92 cm none IVS:LVPW ratio (2D) 1.11 ratio none LVIDd (2D) 3.81 cm none LVIDs (2D) 2.49 cm none LVIDd (2D) index 1.94 cm/m2 none LVIDs (2D) index 1.27 cm/m2 none LV FS (2D) 34.65 % none LV FS (Teichholz) (2D) 34.6 % none LV FS (cube) (2D) 34.6 % none EF Teichholz (2D) 64.55 % none Ao root diameter (2D) 3.9 cm none Aortic root diameter (2D) inde1.98 cm/m2 none Volumes/Mass Name Value Normal Range LA ESV SP 4CH (MOD) 35 ml none LA ESV SP 2CH (MOD) 31 ml none LA ESV BP (MOD) 36 ml none LA ESV BP (MOD) index 18.3 ml/m2 none LV EDV SP 4CH (MOD) 88 ml none LV ESV SP 4CH (MOD) 30 ml none EF SP 4CH (MOD) 65.91 % none LV EDV SP 2CH (MOD) 97 ml none LV ESV SP 2CH (MOD) 35 ml none EF SP 2CH (MOD) 63.92 % none LV EDV BP 92 ml none LV ESV BP 33 ml none BP EF (MOD) 64.13 % none LV EDV BP index 46.76 ml/m2 none LV ESV BP index 16.77 ml/m2 none LV mass (2D) 112.34 g none LV mass (2D) index 57.1 g/m2 none RWT 0.5 ratio none Diastolic/Systolic Function Name Value Normal Range MV E-wave Vmax 0.54 m/sec none MV deceleration time 162 msec none MV A-wave Vmax 0.58 m/sec none MV E:A ratio 0.94 ratio (1.1 - 1.5) LV septal e' Vmax 0.1 m/sec none LV lateral e' Vmax 0.1 m/sec none LV average e' Vmax 0.1 m/sec none LV E:e' septal ratio 5.17 ratio none LV E:e' lateral ratio 5.69 ratio none LV average E:e' ratio 5.42 ratio none TAPSE 2.8 cm none Aortic Valve Name Value Normal Range AV Vmax 1.07 m/sec (1 - 1.7) AV VTI 20.2 cm none AV peak gradient 4.58 mmHg (Less Than 36) AV mean gradient 3 mmHg (Less Than 20) LVOT Vmax 0.88 m/sec (0.7 - 1.1) LVOT VTI 16.1 cm none LVOT peak gradient 3 mmHg none LVOT mean gradient 2 mmHg none DOI (VTI) 0.8 ratio none DOI (Vmax) 0.82 ratio none Mitral Valve Name Value Normal Range MV Vmax 0.68 m/sec (0.6 - 1.3) MV VTI 17.1 cm none MV peak gradient 1.83 mmHg none MV mean gradient 1 mmHg none MV PHT 41 msec none MVA (PHT) 5.37 cm2 none Tricuspid Valve Name Value Normal Range TR Vmax 2.06 m/sec none TR peak gradient 16.97 mmHg none RAP 3 mmHg none RVSP 19.97 mmHg none Pulmonic Valve/Qp:Qs Name Value Normal Range PV Vmax 1.02 m/sec (0.6 - 0.9) PV VTI 18.9 cm none PV peak gradient 4.16 mmHg none PV mean gradient 2 mmHg none Electronically Signed at 05/03/2017 11:35:04 by: Kary Arellano M.D. Invalid Interpretation Code [facility] STRESS TEST ONLY, EXERCISEon 05-03-2017 STRESS TEST ONLY, EXERCISE This is a summary report. The complete report is available in the patient's medical record. If you cannot access the medical record, please contact the sending organization for a detailed fax or copy.Normal stress treadmill ECG test. Adequate workload achieved.[place] score 10 C/W low risk by SCAI criteria associated with less than 1% risk of cardiac mortality per year. Normal [facility] Ambulatory Stress test only, exerciseon 05-03-2017 Angina Index 0 1 Invalid Interpretation Code MUSE Baseline BP 128/90 Invalid Interpretation Code mmHg MUSE Baseline HR 81 bpm Invalid Interpretation Code MUSE [place] Treadmill Score 10.00 1 Invalid Interpretation Code MUSE Estimated workload 11.7 METS Invalid Interpretation Code MUSE Exercise duration (min) 10 min Invalid Interpretation Code MUSE Exercise duration (sec) 0 sec Invalid Interpretation Code MUSE Percent of predicted max HR 99 % Invalid Interpretation Code MUSE Post peak BP 184/75 Invalid Interpretation Code mmHg MUSE Post peak HR 166 bpm Invalid Interpretation Code MUSE ST Elevation (mm) 0 mm Invalid Interpretation Code MUSE Target HR 142 bpm Invalid Interpretation Code MUSE Stress test only, exercise Normal stress treadmill ECG test. Adequate workload achieved. Sal[place] score 10 C/W low risk by SCAI criteria associated with less than 1% risk of cardiac mortality per year. Invalid Interpretation Code MUSE ECG 12 [place] 04-25-2017 Atrial Rate Invalid Interpretation Code [facility] Work Phone: P [place] Invalid Interpretation Code [facility] Work Phone: P-R Interval Invalid Interpretation Code [facility] Phone: Q-T Interval Invalid Interpretation Code [facility] Phone: Q-T Interval (corrected) Invalid Interpretation Code [facility] Work Phone: QRS Duration Invalid Interpretation Code [facility] Work Phone: QTC Calculation (Bezet) Invalid Interpretation Code [facility] Work Phone: R [place] Invalid Interpretation Code [facility] Work Phone: T [place] Invalid Interpretation Code [facility] Work Phone: Ventricular Rate Invalid Interpretation Code [facility] Work Phone: Vital Signs Date Time Vital Sign Value Performing Clinician Jana rodriguez 11-05-2024 08:01-0400 Body mass index (BMI) [Ratio] 23.72 kg/m2 Giana Tay APRN.[employer] Work Phone: [facility] 11-05-2024 08:01-0400 Body weight 75 kg Giana Tay APRN.[employer] Work Phone: [facility] 11-05-2024 08:01-0400 Diastolic blood pressure 74 mm[Hg] Giana Tay APRN.[employer] Work Phone: [facility] 11-05-2024 08:01-0400 Heart rate 81 /min Giana Tay APRN.[employer] Work Phone: [facility] 11-05-2024 08:01-0400 SaO2% (BldA) [Mass fraction] 98 % Giana Tay APRN.[employer] ENG[employer] Work Phone: [facility] 11-05-2024 08:01-0400 Systolic blood pressure 118 mm[Hg] Giana Tay APRN.[employer] Work Phone: [facility] 02-27-2024 08:05-0400 Body mass index (BMI) [Ratio] 24.48 kg/m2 Kary Lin APRN.[employer] ENG[employer] Work Phone: [facility] 02-27-2024 08:05-0400 Body weight 77.4 kg Kary Lin APRN.[employer] Work Phone: [facility] 02-27-2024 08:05-0400 Diastolic blood pressure 74 mm[Hg] Kary Lin APRN.[employer] ENG[employer]ER Work Phone: [facility] 02-27-2024 08:05-0400 Heart rate 82 /min Kary Lin APRN.[employer]ER Work Phone: [facility] 02-27-2024 08:05-0400 SaO2% (BldA) [Mass fraction] 99 % Kary Lin APRN.[employer] ENGINEER Work Phone: [facility] 02-27-2024 08:05-0400 Systolic blood pressure 116 mm[Hg] Kary Lin APRN.[employer] Work Phone: [facility] 07-15-2023 08:08-0500 Body height 177.8 cm Michelle Amalfitano DO Work Phone: [facility] 07-15-2023 08:08-0500 Body weight 77 kg Michelle Amalfitano DO Work Phone: [facility] 07-15-2023 08:08-0500 Diastolic blood pressure 86 mm[Hg] Michelle Amalfitano DO Work Phone: [facility] 07-15-2023 08:08-0500 Heart rate 81 /min Michelle Amalfitano DO Work Phone: [facility] 07-15-2023 08:08-0500 SaO2% (BldA) [Mass fraction] 98 % Michelle Amalfitano DO Work Phone: [facility] 07-15-2023 08:08-0500 Systolic blood pressure 118 mm[Hg] Michelle Amalfitano DO Work Phone: [facility] 02-15-2023 08:06-0400 Body height 177.8 cm Kary Lin APRN.[employer]ER Work Phone: [facility] 02-15-2023 08:06-0400 Body weight 77.11 kg Kary Lin APRN.[employer] Work Phone: [facility] 02-15-2023 08:06-0400 Diastolic blood pressure 84 mm[Hg] Kary Lin APRN.[employer] ENGINEER Work Phone: [facility] 02-15-2023 08:06-0400 Heart rate 91 /min Kary Lin APRN.[employer] Work Phone: [facility] 02-15-2023 08:06-0400 SaO2% (BldA) [Mass fraction] 98 % Kary Lin APRN.[employer] ENGINEER Work Phone: [facility] 02-15-2023 08:06-0400 Systolic blood pressure 120 mm[Hg] Kary Lin APRN.[employer]ER Work Phone: [facility] 01-08-2023 08:14-0400 Body height 177.8 cm Michelle Dcyandeljodieaayush Work Phone: [facility] 01-08-2023 08:14-0400 Body weight 77.56 kg Michelle Lozajodieaayush Work Phone: [facility] 01-08-2023 08:14-0400 Diastolic blood pressure 84 mm[Hg] Michelle Tomlinson Work Phone: [facility] 01-08-2023 08:14-0400 Heart rate 83 /min Michelle Tomlinson Work Phone: [facility] 01-08-2023 08:14-0400 SaO2% (BldA) [Mass fraction] 99 % Michelle Tomlinson Work Phone: [facility] 01-08-2023 08:14-0400 Systolic blood pressure 140 mm[Hg] Michelle Tomlinson Work Phone: [facility] 04-09-2022 10:19-0500 Diastolic blood pressure 84 mm[Hg] Angio 1 Work Phone: [facility] 04-09-2022 10:19-0500 Heart rate 93 /min Angio 1 Work Phone: [facility] 04-09-2022 10:19-0500 SaO2% (BldA) [Mass fraction] 99 % Angio 1 Work Phone: [facility] 04-09-2022 10:19-0500 Systolic blood pressure 132 mm[Hg] Angio 1 Work Phone: [facility] 05-03-2017 07:40-0500 BMI (Body Mass Index) 24.96 kg/m2 Hermilo Hernandez [facility] Work Phone: 05-03-2017 07:40-0500 BP Diastolic 90 mm[Hg] Hermilo Hernandez [facility] Work Phone: 05-03-2017 07:40-0500 BP Systolic 128 mm[Hg] Hermilo Hernandez [facility] Work Phone: 05-03-2017 07:40-0500 Height 177.8 cm Hermilo Hernandez [facility] Work Phone: 05-03-2017 07:40-0500 Pulse (Heart Rate) 81 /min Hermilo Hernandez [facility] Work Phone: 05-03-2017 07:40-0500 Weight 78.9 kg Hermilo Hernandez [facility] Work Phone: 04-25-2017 16:32-0500 BMI (Body Mass Index) 24.97 kg/m2 Hermilo Hernandez [facility] Work Phone: 04-25-2017 16:32-0500 BP Diastolic 93 mm[Hg] Hermilo Hernandez [facility] Work Phone: 04-25-2017 16:32-0500 BP Systolic 129 mm[Hg] Hermilo Hernandez [facility] Work Phone: 04-25-2017 16:32-0500 Height 177.8 cm Hermilo Hernandez [facility] Work Phone: 04-25-2017 16:32-0500 Pulse (Heart Rate) 97 /min Hermilo Hernandez [facility] Work Phone: 04-25-2017 16:32-0500 Pulse Oximetry 96 % Hermilo Hernandez [facility] Work Phone: 04-25-2017 16:32-0500 Weight 78.93 kg Hermilo Hernandez [facility] Work Phone: Encounters Encounter Date Encounter Type Care Provider Facility Start: 02-18-2025 End: 02-18-2025 ambulatory [facility] Facility:[facility] Start: 12-17-2024 ambulatory [facility] Facility:[facility] Start: 11-05-2024 End: 11-09-2024 Clinisync Result Encounter Generic External Data Provider [facility] External Department Unsolicited Start: 11-05-2024 End: 11-09-2024 Clinisync Result Encounter Generic External Data Provider [facility] External Department Unsolicited Start: 11-05-2024 End: 11-05-2024 Office outpatient visit 25 minutes Giana Tay APRN.CNP Work Phone: Cardiology Comment on above: Ascending aorta dila tion (Primary Dx); Chest pain, unspecified type; Mitral valve insufficiency, unspecified etiology; Family history of ischemic heart disease Start: 11-05-2024 End: 11-05-2024 ambulatory [facility] [facility] Facility:[facility] Start: 07-14-2024 End: 07-17-2024 Telephone encounter Sherly Guevara MD Work Phone: Cardiology Comment on above: Pain Start: 06-16-2024 End: 06-16-2024 Telephone encounter Hermilo Nelson Work Phone: Cardiology Comment on above: Appointment Cancelle d Start: 05-12-2024 End: 05-12-2024 Telephone encounter Salvatore Lock MD Work Phone: [facility] Start: 05-07-2024 End: 03-11-2025 Clinisync Result Encounter Salvatore Lock MD Work Phone: [facility] External Department Unsolicited Start: 05-07-2024 End: 03-11-2025 Clinisync Result Encounter Salvatore Lock MD Work Phone: [facility] External Department Unsolicited Start: 05-07-2024 End: 05-07-2024 Subsequent hospital visit by physician Mih[facility] Comment on above: Chest pain, unspecif ied Start: 05-07-2024 End: 05-07-2024 ambulatory SALVAT[facility] L[facility] Start: 03-09-2024 End: 03-14-2024 Refill Salvatore Lock MD Work Phone: [facility] Comment on above: Erectile dysfunction , unspecified erectile dysfunction type (Primary Dx) Start: 02-27-2024 End: 02-27-2024 ambulatory KARYLIZANDRO LIN Facility:[facility] Start: 02-27-2024 End: 02-27-2024 Patient encounter procedure Kary Lin PRESIDENT PRACTICING UROLOGIST.[employer] ENG[employer] Work Phone: Cardiology Comment on above: Mitral valve prolaps e (Primary Dx); MVP (mitral valve prolapse); Ascending aorta dilatation (HCC) Start: 02-10-2024 End: 02-10-2024 Bamboo flowsheet Salvatore Lock MD Work Phone: [facility] Start: 02-10-2024 End: 02-10-2024 Bamboo flowsheet Salvatore Lock MD Work Phone: [facility] Start: 02-10-2024 End: 02-10-2024 Patient encounter procedure Salvatore Lock MD Work Phone: [facility] Comment on above: Left sided abdominal pain (Primary Dx); Gastroesophageal reflux disease without esophagitis; Testicular hypofunction; Testosterone deficiency Start: 02-10-2024 End: 02-10-2024 ambulatory SALVATORE LOCK Not Available Start: 01-28-2024 End: 01-29-2024 Telephone encounter Salvatore Lock MD Work Phone: [facility] Start: 08-28-2023 End: 03-11-2025 Clinisync Result Encounter Generic External Data Provider [facility] External Department Unsolicited Start: 08-28-2023 End: 03-11-2025 Clinisync Result Encounter Generic External Data Provider [facility] External Department Unsolicited Start: 08-28-2023 End: 08-28-2023 Subsequent hospital visit by physician [facility] Work Phone: Molecular Imaging Comment on above: MVP (mitral valve pr olapse) [I34.1] Start: 08-27-2023 End: 04-29-2024 Telephone encounter Christina Carrasco RN Cardiology Lab Start: 08-08-2023 End: 08-08-2023 ambulatory SALVATORE LOCK Not Available Start: 07-15-2023 End: 03-11-2025 Clinisync Result Encounter Generic External Data Provider [facility] External Department Unsolicited Start: 07-15-2023 End: 03-11-2025 Clinisync Result Encounter Generic External Data Provider [facility] External Department Unsolicited Start: 07-15-2023 End: 07-15-2023 Patient encounter procedure Michelle Tomlinson DO Work Phone: Cardiology Comment on above: Chest pain, unspecif ied type (Primary Dx); MVP (mitral valve prolapse); Ascending aorta dilatation (HCC); Mild mitral regurgitation by prior echocardiogram; MONET (dyspnea on exertion); Mixed hyperlipidemia; Elevated coronary artery calcium score Start: 04-10-2023 End: 04-10-2023 ambulatory SALVATORE LOCK Not Available Start: 03-06-2023 End: 03-06-2023 Subsequent hospital visit by physician [facility] Comment on above: Muscle weakness (gen eralized); Other cervical disc degeneration, unspecified cervical region; Cervicalgia Start: 02-15-2023 End: 02-15-2023 Patient encounter procedure Kary Lin APRN.[employer] ENGINEER Work Phone: Cardiology Comment on above: MVP (mitral valve pr olapse) (Primary Dx); Ascending aorta dilatation (HCC) Start: 01-11-2023 End: 01-11-2023 ambulatory [facility] Work Phone: Start: 01-11-2023 End: 01-11-2023 Discharged [facility] Work Phone: Start: 01-08-2023 End: 01-08-2023 Patient encounter procedure Michelle Tomlinson DO Work Phone: Cardiology Comment on above: Mild mitral regurgit ation by prior echocardiogram (Primary Dx); MVP (mitral valve prolapse); Ascending aorta dilation (HCC); MONET (dyspnea on exertion); Mixed hyperlipidemia Start: 01-04-2023 ambulatory [facility] Facility: [facility] Start: 10-04-2022 Telephone encounter Geraldo olmedo OD Work Phone: Ophthalmology Comment on above: Refill Request Start: 09-05-[address] Salvatore Lock Facility:[id number] Start: 08-31-[address] Salvatore Lock Facility:[id number] Start: 05-17-2022 Telephone encounter Alessandra clayton PAStaciC Work Phone: Radiology Comment on above: Results Start: 05-10-2022 End: 05-10-2022 Subsequent hospital visit by physician Ct 2 Main Qb (I-Stat) Radiology Comment on above: Acquired cyst of kid rosa m [N28.1] Start: 04-09-2022 Telephone encounter Alexx Cavanaugh MD Work Phone: Radiology Comment on above: Appointment Start: 04-09-2022 End: 04-09-2022 Follow-up encounter Angio 1 Work Phone: Radiology Comment on above: Radiology IR (Follow up) Start: 04-09-2022 End: 04-09-2022 Patient encounter procedure Angio Room 1 Work Phone: [facility] Start: 04-09-2022 End: 04-09-2022 Subsequent hospital visit by physician [facility] Q[facility] Radiology Comment on above: Renal cyst [N28.1] Start: 02-26-2022 Orders Only Alessandra Damon PA-C Work Phone: Radiology Comment on above: Renal cyst (Primary Dx) Start: 01-30-2022 Telephone encounter Michelle Tomlinson DO Work Phone: Cardiology Comment on above: Risk Management Specialist - O ther Start: 10-05-2021 End: 10-05-2021 Patient encounter procedure Geraldo Wylie OD Work Phone: Ophthalmology Comment on above: Corneal edema of lef t eye (Primary Dx); FB in conjunctival sac, left, subsequent encounter Start: 2021 End: 2021 Patient encounter procedure Geraldo Wylie OD Work Phone: Ophthalmology Comment on above: Foreign body in conj unctival sac, left, initial encounter (Primary Dx) Start: 07-27-2020 End: 07-27-2020 Orders Only Estefanía Harvey Work Phone: [facility] Start: 04-18-2018 End: 04-18-[address] [facility] Start: 02-06-2018 Patient encounter Surya Lopez [place] Facility[place] Start: 02-06-2018 End: 02-06-2018 Patient encounter Salvatore Lock [facility] Start: 01-28-2018 Patient encounter [facility] Start: 05-03-2017 End: 05-04-2017 Ambulatory HERMILO HERNANDEZ [facility] Start: 05-03-2017 End: 05-03-2017 Ambulatory Hermilo Hernandez Work Phone: [facility] Start: 04-25-2017 End: 04-25-2017 Ambulatory HERMILO HERNANDEZ [facility] Start: 04-25-2017 Office/outpatient vi sit, est, level 3 Hermilo Hernandez Work Phone: [facility] Procedures Date Procedure Procedure Detail Performing Clinician Start: 11-05-2024 Ecg routine ecg w/le ast 12 lds i&r only [facility] Provider Start: 11-05-2024 ECG01 Generic Ex ternal Data Provider Start: 05-07-2024 Radex spine thoracic 3 views Salvatore Lock MD Work Phone: Start: 08-28-2023 Myocardial spect mul tiple studies Michelle Tomlinson DO Work Phone: Start: 08-28-2023 NM CARDIAC PERF STRESS/EXERCISE Generic External Data Provider Start: 07-15-2023 Ecg routine ecg w/le ast 12 lds i&r only [facility] Provider Start: 07-15-2023 ECG01 Generic Ex ternal Data Provider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 10/05/2021) [facility] History of Past illness Narrative* Problem Noted Date Resolved Date Refractive error 01/11/2017 2021 Punctate epithelial keratopathy of both eyes 02/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 Neoplasm of uncertain behavior of skin 7 03/31/2018 Benign neoplasm of skin of trunk, except scrotum 06/20/2006 03/31/2018 documented as of this encounter (statuses as of 01/30/2022) [facility] History of Past illness Narrative* Problem Noted Date Resolved Date Refractive error 01/11/2017 2021 Punctate epithelial keratopathy of both eyes 02/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 Neoplasm of uncertain behavior of skin 7 03/31/2018 Benign neoplasm of skin of trunk, except scrotum 06/20/2006 03/31/2018 documented as of this encounter (statuses as of 02/26/2022) [facility] History of Past illness Narrative* Problem Noted Date Resolved Date Refractive error 01/11/2017 2021 Punctate epithelial keratopathy of both eyes 02/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 Neoplasm of uncertain behavior of skin 7 03/31/2018 Benign neoplasm of skin of trunk, except scrotum 06/20/2006 03/31/2018 documented as of this encounter (statuses as of 04/09/2022) [facility] History of Past illness Narrative* Problem Noted Date Resolved Date Refractive error 01/11/2017 2021 Punctate epithelial keratopathy of both eyes 02/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 Neoplasm of uncertain behavior of skin 7 03/31/2018 Benign neoplasm of skin of trunk, except scrotum 06/20/2006 03/31/2018 documented as of this encounter (statuses as of 04/10/2022) [place] [address]-01-2017 History of Past illness Narrative* Problem Noted Date Resolved Date Refractive error 01/11/2017 2021 Punctate epithelial keratopathy of both eyes 02/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 Neoplasm of uncertain behavior of skin 7 03/31/2018 Benign neoplasm of skin of trunk, except scrotum 06/20/2006 03/31/2018 documented as of this encounter (statuses as of 04/23/2022) [facility] of Past illness Narrative* Problem Noted Date Resolved Date Refractive error 01/11/2017 2021 Punctate epithelial keratopathy of both eyes 02/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 Neoplasm of uncertain behavior of skin 7 03/31/2018 Benign neoplasm of skin of trunk, except scrotum 06/20/2006 03/31/2018 documented as of this encounter (statuses as of 05/16/2022) [facility] of Past illness Narrative* Problem Noted Date Resolved Date Refractive error 01/11/2017 2021 Punctate epithelial keratopathy of both eyes 02/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 Neoplasm of uncertain behavior of skin 200 7 03/31/2018 Benign neoplasm of skin of trunk, except scrotum 06/20/2006 03/31/2018 documented as of this encounter (statuses as of 05/18/2022) [facility] of Past illness Narrative* Problem Noted Date Resolved Date Refractive error 01/11/2017 2021 Punctate epithelial keratopathy of both eyes 02/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 Neoplasm of uncertain behavior of skin 7 03/31/2018 Benign neoplasm of skin of trunk, except scrotum 06/20/2006 03/31/2018 documented as of this encounter (statuses as of 10/09/2022) [facility] of Past illness Narrative* Problem Noted Date Diagnosed Date Resolved Date Refractive error 01/11/2017 2021 Punctate epithelial keratopathy of both eyes 7 2021 Neoplasm of uncertain behavior of skin 06/20/2006 03/31/2018 Benign neoplasm of skin of t runk, except scrotum 06/20/2006 03/31/2018 documented as of this encounter (statuses as of 01/08/2023) [facility] of Past illness Narrative* Problem Noted Date Diagnosed Date Resolved Date Refractive error 01/11/2017 2021 Punctate epithelial keratopathy of both eyes 7 2021 Neoplasm of uncertain behavior of skin 06/20/2006 03/31/2018 Benign neoplasm of skin of t runk, except scrotum 06/20/2006 03/31/2018 documented as of this encounter (statuses as of 02/16/2023) [facility] of Past illness Narrative* Problem Noted Date Diagnosed Date Resolved Date Refractive error 01/11/2017 2021 Punctate epithelial keratopathy of both eyes 7 2021 Neoplasm of uncertain behavior of skin 06/20/2006 03/31/2018 Benign neoplasm of skin of t runk, except scrotum 06/20/2006 03/31/2018 documented as of this encounter (statuses as of 07/15/2023) [facility] of Past illness Narrative* Problem Noted Date Diagnosed Date Resolved Date Refractive error 01/11/2017 2021 Punctate epithelial keratopathy of both eyes 7 2021 Neoplasm of uncertain behavior of skin 06/20/2006 03/31/2018 Benign neoplasm of skin of t runk, except scrotum 06/20/2006 03/31/2018 documented as of this encounter (statuses as of 08/29/2023) [facility] History of Past illness Narrative* Problem Noted Date Diagnosed Date Resolved Date Refractive error 01/11/2017 2021 Punctate epithelial keratopathy of both eyes 7 2021 Neoplasm of uncertain behavior of skin 06/20/2006 03/31/2018 Benign neoplasm of skin of t runk, except scrotum 06/20/2006 03/31/2018 documented as of this encounter (statuses as of 08/29/2023) [facility] Diagnosis Foreign body in conjunctival sac, left, initial encounter- Primary documented in this encounter [facility]* Diagnosis Corneal edema of left eye- Primary FB in conjunctival sac, left, subsequent encounter documented [facility] this encounter [facility]* Diagnosis 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 documented [facility] this [facility]* Diagnosis 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 Acquired cyst of kidney documented [facility] this [facility]* Diagnosis Renal cyst Unspecified congenital cystic kidney disease documented in this encounter [facility]* Diagnosis Acquired cyst of kidney documented [facility] this [facility]* Diagnosis Mild mitral regurgitation by prior echocardiogram- Primary Mitral valve disorders MVP (mitral valve prolapse) Mitral valve disorders Ascending aorta dilation (HCC) Thoracic aortic ectasia MONET (dyspnea on exertion) Other dyspnea and respiratory abnormality Mixed hyperlipidemia documented [facility] this encounter [facility]* Diagnosis MVP (mitral valve prolapse)- Primary Mitral valve disorders Ascending aorta dilatation (HCC) Thoracic aortic ectasia documented [facility] this [facility]* Diagnosis Muscle weakness (generalized) Other cervical disc degeneration, unspecified cervical region Cervicalgia documented in this encounter [facility] Work Phone: Evaluation noteNo assessment information available [facility] Work Phone: Evaluation note* Diagnosis Chest pain, unspecified type- Primary MVP (mitral valve prolapse) Mitral valve disorders Ascending aorta dilatation (HCC) Thoracic aortic ectasia Mild mitral regurgitation by prior echocardiogram Mitral valve disorders MONET (dyspnea on exertion) Other dyspnea and respiratory abnormality Mixed hyperlipidemia Elevated coronary artery calcium score documented [facility] this encounter [facility]* Diagnosis MVP (mitral valve prolapse) Mitral valve disorders Chest pain, unspecified type Ascending aorta dilatation (HCC) Thoracic aortic ectasia Mild mitral regurgitation by prior echocardiogram Mitral valve disorders MONET (dyspnea on exertion) Other dyspnea and respiratory abnormality Mixed hyperlipidemia Elevated coronary artery calcium score [facility] Diagnosis Mitral valve prolapse- Primary Mitral valve disorders MVP (mitral valve prolapse) Mitral valve disorders Ascending aorta dilatation (HCC) Thoracic aortic ectasia documented in this encounter [facility]* Diagnosis Erectile dysfunction, unspecified erectile dysfunction type- Primary [facility] Diagnosis Left sided abdominal pain- Primary Abdominal pain, unspecified site Gastroesophageal reflux disease without esophagitis Esophageal reflux Testicular hypofunction Other testicular hypofunction Testosterone deficiency Other testicular hypofunction [facility]* Diagnosis Chest pain, unspecified documented in this encounter [facility] Work Phone: Evaluation note* Diagnosis Testicular hypofunction Other testicular hypofunction Testosterone deficiency Other testicular hypofunction [facility]* Diagnosis Ascending aorta dilation- Primary Thoracic aortic ectasia Chest pain, unspecified type Mitral valve insufficiency, unspecified etiology Family history of ischemic heart disease documented in this encounter [facility] for referral (narrative)* Diagnostic Procedure Only (Routine) - Pending Review Specialty Diagnoses / Procedures Referred By Contac t Referred To Contact US IMAGING Diagnoses Renal cyst Procedures US KIDNEY/BLADDER US RETROPERITONEAL REAL TIME W/IMAGE COMPLETE [facility] [place] [address] [address] Us Imaging Referral ID Status Reason Start Date Expiration Date Visits Requested Visits Authorized [id number] Pending Review Auto-Generat ed Referral 2 03/28/2023 1 1 [facility] for referral (narrative)* Diagnostic Procedure Only (Routine) - Closed Specialty Diagnoses / Procedures Referred By Contac t Referred To Contact US IMAGING Diagnoses Renal cyst Procedures US KIDNEY/BLADDER US RETROPERITONEAL REAL TIME W/IMAGE COMPLETE Radio Angio [address] [place] [address] Us Imaging Referral ID Status Reason Start Date Expiration Date V isits Requested Visits Authorized [id number] Closed Auto-Generate d Referral 02/26/2022 03/28/2023 1 1 [facility] for referral (narrative)* Outpatient Procedure (Routine) - Authorized Specialty Diagnoses / Procedures Referred By Contac t Referred To Contact [facility] [place] Diagnoses MVP (mitral valve prolapse) Ascending aorta dilation (HCC) Mild mitral regurgitation by prior echocardiogram MONET (dyspnea on exertion) Procedures ECHO ECHO TTHRC R-T 2D W/WOM-MODE COMPL SPEC&COLR D Michelle Tomlinson DO [address] [place] [address] [facility] [place] [id number] Referral ID Status Reason Start Date Expiration Date Visits Requested Visits Authorized [id number] Authorized Auto-Generat ed Referral 01/08/2023 01/08/2024 1 1 [facility] for referral (narrative)* Outpatient Procedure (Routine) - Authorized Specialty Diagnoses / Procedures Referred By Contac t Referred To Contact [facility] [place] Diagnoses MVP (mitral valve prolapse) Procedures ECHO ECHO TTHRC R-T 2D W/WOM-MODE COMPL SPEC&COLR Kary Paz APRN.CNP [address] [place] [address] [address] Referral ID Status Reason Start Date Expiration Date Visits Requested Visits Authorized [id number] Authorized Auto-Generat ed Referral 02/15/2023 02/15/2024 1 1 [facility] for referral (narrative)* Diagnostic Procedure Only (Routine) - Pending Review Specialty Diagnoses / Procedures Referred By Contac t Referred To Contact [facility]AL [facility] Diagnoses MVP (mitral valve prolapse) Chest pain, unspecified type Ascending aorta dilatation (HCC) Mild mitral regurgitation by prior echocardiogram MONET (dyspnea on exertion) Mixed hyperlipidemia Elevated coronary artery calcium score Procedures NM CARDIAC PERF STRESS/EXERCISE MYOCARDIAL SPECT MULTIPLE STUDIES Michelle Tomlinson, DO [address] [place] [address] [facility] [address] [place] [address] Referral ID Status Reason Start Date Expiration Date Visits Requested Visits Authorized [id number] Pending Review Auto-Generat ed Referral 07/15/2023 08/13/2024 1 1 [facility] for referral (narrative)* Diagnostic Procedure Only (Routine) - Closed Specialty Diagnoses / Procedures Referred By Contac t Referred To Contact MOLECULAR & FUNCTIONAL IMAGING Diagnoses MVP (mitral valve prolapse) Chest pain, unspecified type Ascending aorta dilatation (HCC) Mild mitral regurgitation by prior echocardiogram MONET (dyspnea on exertion) Mixed hyperlipidemia Elevated coronary artery calcium score Procedures NM CARDIAC PERF STRESS/EXERCISE MYOCARDIAL SPECT MULTIPLE STUDIES Michelle Tomlinson, DO [address] [place] [address] [facility] [address] [place] [address] Referral ID Status Reason Start Date Expiration Date V isits Requested Visits Authorized [id number] Closed Auto-Generate d Referral 07/15/2023 08/13/2024 1 1 [facility] for referral (narrative)* Outpatient Procedure (Routine) - New Request Specialty Diagnoses / Procedures Referred By Contac t Referred To Contact [facility] Diagnoses Mitral valve prolapse Procedures ECHO ECHO TTHRC R-T 2D W/WOM-MODE COMPL SPEC&COLR D Kary Lin APRN.[employer] ENGINEER [address] [place] [address] [facility] [place] [address] [place] [address] Referral ID Status Reason Start Date Expiration Date Visits Requested Visits Authorized [id number] New Request Auto-Generat ed Referral 02/26/2025 1 1 [facility] for visit Narrative* Diagnostic Procedure Only (Routine) - Closed Specialty Diagnoses / Procedures Referred By Contac t Referred To Contact US IMAGING Diagnoses Renal cyst Procedures US KIDNEY/BLADDER US RETROPERITONEAL REAL TIME W/IMAGE COMPLETE Radio Angio [address] [place] [address] Us Imaging Referral ID Status Reason Start Date Expiration Date V isits Requested Visits Authorized [id number] Closed Auto-Generate d Referral 02/26/2022 03/28/2023 1 1 [facility] for visit Narrative* Diagnostic Procedure Only (Routine) - Closed Specialty Diagnoses / Procedures Referred By Contac t Referred To Contact MOLECULAR & FUNCTIONAL IMAGING Diagnoses MVP (mitral valve prolapse) Chest pain, unspecified type Ascending aorta dilatation (HCC) Mild mitral regurgitation by prior echocardiogram MONET (dyspnea on exertion) Mixed hyperlipidemia Elevated coronary artery calcium score Procedures NM CARDIAC PERF STRESS/EXERCISE MYOCARDIAL SPECT MULTIPLE STUDIES Michelle Tomlinson DO [address] [place] [address] [facility] [address] [place] [address] Referral ID Status Reason Start Date Expiration Date V isits Requested Visits Authorized [id number] Closed Auto-Generate d Referral 07/15/2023 08/13/2024 1 1 [facility] for visit Narrative* Imaging (Routine) - Authorized Specialty Diagnoses / Procedures Referred By Contac t Referred To Contact Radiology Diagnoses Chest pain, unspecified Procedures XR ribs 2 views left w chest pa or ap Salvatore Lock MD [address] [place] [address] Phone: tel: fax:[phone] Referral ID Status Reason Start Date Expiration Date Visits Requested Visits Authorized [id number] Authorized Perform Procedure 4 05/07/2025 1 1 [facility] Work Phone: Reason for visit Narrative* Imaging (Routine) - Authorized Specialty Diagnoses / Procedures Referred By Karla ruelas Referred To Contact Radiology Diagnoses Chest pain, unspecified Procedures XR thoracic spine 3 views Salvatore Lock MD [address] [place] [address] Phone: tel: fax: Referral ID Status Reason Start Date Expiration Date Visits Requested Visits Authorized [id number] Authorized Perform Procedure 4 05/07/2025 1 1 [facility] Work Phone: Assessments Diagnosis Chest pain, unspecified type Dyspnea on exertion Other dyspnea and respiratory abnormality Mitral valve prolapse Mitral valve disorders Diagnosis Chest pain, unspecified type Diagnosis Chest pain, unspecified type - Primary Thoracic outlet syndrome Brachial plexus lesions Dyspnea on exertion Other dyspnea and respiratory abnormality Mitral valve prolapse Mitral valve disorders Lyme disease Summary Purpose Family History No Family History Records FoundNo Family History Records FoundNo Family History Records FoundNo Family History Records FoundNo Family History Records FoundNo Family History Records FoundNo Family History Records FoundNo Family History Records FoundNo Family History Records FoundNo Family History Records FoundNo Family History Records FoundNo Family History Records FoundNo Family History Records FoundNo Family History Records FoundNo Family History Records Found Advance Directives Documents on File Type Date Recorded Patient Retail Project Merchandiser Expl anation Advance Directives and Living Will Documents on File Type Date Recorded Patient Retail Project Merchandiser Expl anation Advance Directive(s) 03/25/2020 5:28 PM Reason for Referral Specialty Diagnoses / Procedures Referred By Karla ruelas Referred To Contact CT IMAGING Diagnoses Acquired cyst of kidney Procedures CT KIDNEY WO/W IVCON CT ABDOMEN W & W/O CONTRAST Alessandra Damon PA-C [address] [place] [address] Ct Imaging Referral ID Status Reason Start Date Expiration Date Visits Requested Visits Authorized [id number] Pending Review Auto-Generat ed Referral 04/16/2022 05/09/2023 1 1 Referral ID Status Reason Start Date Expiration Date V isits Requested Visits Authorized [id number] Closed Auto-Generate d Referral 04/16/2022 06/07/2022 1 1 Specialty Diagnoses / Procedures Referred By Contcasey t Referred To Contact Radiology Diagnoses Muscle weakness (generalized) Other cervical disc degeneration, unspecified cervical region Cervicalgia Procedures MR cervical spine wo IV contrast Salvatore Lock MD [address] [place] [address] Referral ID Status Reason Start Date Expiration Date Visits Requested Visits Authorized [id number] Authorized Perform Procedure 3 08/20/2023 1 1 Chief Complaint and Reason for Visit Chief Complaint DDD. RX HERE Additional Source Comments (unrecognized sect ion and content) No Status Records FoundNo Status Records FoundNo Status Records FoundNo Status Records FoundNo Status Records FoundNo Status Records FoundNo Status Records FoundNo Status Records FoundNo Status Records FoundNo Status Records FoundNo Status Records FoundNo Status Records FoundNo Status Records FoundNo Status Records FoundNo Status Records Found INFORMATION SOURCE (unrecogn ized section and content) DATE CREATED AUTHOR 11/05/2017 [facility] DATE CREATED AUTHOR AUTHOR'S ORGANIZ ATION 02/23/2018 [facility] DATE CREATED AUTHOR AUTHOR'S ORGANIZ ATION 03/13/2018 [facility] DATE CREATED AUTHOR AUTHOR'S ORGANIZ ATION 04/25/2018 [facility] DATE CREATED AUTHOR AUTHOR'S ORGANIZ ATION 01/09/2019 [facility] DATE CREATED AUTHOR AUTHOR'S ORGANIZ ATION 07/27/2019 [facility] DATE CREATED AUTHOR AUTHOR'S ORGANIZ ATION 09/08/2019 [facility] DATE CREATED AUTHOR AUTHOR'S ORGANIZ ATION 09/20/2020 [facility] DATE CREATED AUTHOR AUTHOR'S ORGANIZ ATION 12/02/2020 [facility] DATE CREATED AUTHOR AUTHOR'S ORGANIZ ATION 09/08/2022 [facility] DATE CREATED AUTHOR AUTHOR'S ORGANIZ ATION 01/05/2023 [facility] DATE CREATED AUTHOR AUTHOR'S ORGANIZ ATION 02/10/2024 [facility] DATE CREATED AUTHOR AUTHOR'S ORGANIZ ATION 05/13/2024 [facility] DATE CREATED AUTHOR AUTHOR'S ORGANIZ ATION 12/19/2024 [facility] DATE CREATED AUTHOR AUTHOR'S ORGANIZ ATION 02/20/2025 [facility] Source Comments (unrecognize d section and content) In the event this informatio n is protected by the Federal Confidentiality of Alcohol and Drug Abuse Patient Records regulations: The Federal rules restrict any use of the information to criminally investigate or prosecute any alcohol or drug abuse patient.[facility] the event this information is protected by the Federal Confidentiality of Alcohol and Drug Abuse Patient Records regulations: The Federal rules restrict any use of the information to criminally investigate or prosecute any alcohol or drug abuse patient.[facility]on[facility] the event this information is protected by the Federal Confidentiality of Alcohol and Drug Abuse Patient Records regulations: The Federal rules restrict any use of the information to criminally investigate or prosecute any alcohol or drug abuse patient.[facility]onIn the event this information is protected by the Federal Confidentiality of Alcohol and Drug Abuse Patient Records regulations: The Federal rules restrict any use of the information to criminally investigate or prosecute any alcohol or drug abuse patient.[facility]onIn the event this information is protected by the Federal Confidentiality of Alcohol and Drug Abuse Patient Records regulations: The Federal rules restrict any use of the information to criminally investigate or prosecute any alcohol or drug abuse patient.[facility]onIn the event this information is protected by the Federal Confidentiality of Alcohol and Drug Abuse Patient Records regulations: The Federal rules restrict any use of the information to criminally investigate or prosecute any alcohol or drug abuse patient.[facility]onIn the event this information is protected by the Federal Confidentiality of Alcohol and Drug Abuse Patient Records regulations: The Federal rules restrict any use of the information to criminally investigate or prosecute any alcohol or drug abuse patient.[facility]onIn the event this information is protected by the Federal Confidentiality of Alcohol and Drug Abuse Patient Records regulations: The Federal rules restrict any use of the information to criminally investigate or prosecute any alcohol or drug abuse patient.[facility]onIn the event this information is protected by the Federal Confidentiality of Alcohol and Drug Abuse Patient Records regulations: The Federal rules restrict any use of the information to criminally investigate or prosecute any alcohol or drug abuse patient.[facility]onIn the event this information is protected by the Federal Confidentiality of Alcohol and Drug Abuse Patient Records regulations: The Federal rules restrict any use of the information to criminally investigate or prosecute any alcohol or drug abuse patient.[facility]onIn the event this information is protected by the Federal Confidentiality of Alcohol and Drug Abuse Patient Records regulations: The Federal rules restrict any use of the information to criminally investigate or prosecute any alcohol or drug abuse patient.[facility]onIn the event this information is protected by the Federal Confidentiality of Alcohol and Drug Abuse Patient Records regulations: The Federal rules restrict any use of the information to criminally investigate or prosecute any alcohol or drug abuse patient.[facility]onIn the event this information is protected by the Federal Confidentiality of Alcohol and Drug Abuse Patient Records regulations: The Federal rules restrict any use of the information to criminally investigate or prosecute any alcohol or drug abuse patient.[facility]onIn the event this information is protected by the Federal Confidentiality of Alcohol and Drug Abuse Patient Records regulations: The Federal rules restrict any use of the information to criminally investigate or prosecute any alcohol or drug abuse patient.[facility]onIn the event this information is protected by the Federal Confidentiality of Alcohol and Drug Abuse Patient Records regulations: The Federal rules restrict any use of the information to criminally investigate or prosecute any alcohol or drug abuse patient.[facility]onIn the event this information is protected by the Federal Confidentiality of Alcohol and Drug Abuse Patient Records regulations: The Federal rules restrict any use of the information to criminally investigate or prosecute any alcohol or drug abuse patient.[facility]onIn the event this information is protected by the Federal Confidentiality of Alcohol and Drug Abuse Patient Records regulations: The Federal rules restrict any use of the information to criminally investigate or prosecute any alcohol or drug abuse patient.[facility]onIn the event this information is protected by the Federal Confidentiality of Alcohol and Drug Abuse Patient Records regulations: The Federal rules restrict any use of the information to criminally investigate or prosecute any alcohol or drug abuse patient.[facility]onIn the event this information is protected by the Federal Confidentiality of Alcohol and Drug Abuse Patient Records regulations: The Federal rules restrict any use of the information to criminally investigate or prosecute any alcohol or drug abuse patient.[facility]onIn the event this information is protected by the Federal Confidentiality of Alcohol and Drug Abuse Patient Records regulations: The Federal rules restrict any use of the information to criminally investigate or prosecute any alcohol or drug abuse patient.[facility] Reason for Visit (unrecogniz ed section and content) Reason Comments Foreign Body Left Eye Reason 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 Reason Comments Radiology IR Follow up Reason Comments Appointment Reason Comments Radiology CT Specialty Diagnoses / Procedures Referred By Contac t Referred To Contact CT IMAGING Diagnoses Acquired cyst of kidney Procedures CT KIDNEY WO/W IVCON CT ABDOMEN W & W/O CONTRAST Alessandra Damon PA-C [address] [place] [address] [address] [address] Imaging Referral ID Status Reason Start Date Expiration Date V isits Requested Visits Authorized [id number] Closed Auto-Generate d Referral 04/16/2022 06/07/2022 1 1 Reason Comments Results Reason Onset Date Comments Refill Request 10/04/2022 Reason Comments Follow Up Room 9 MVP A little tightness here and there. A little SOB.OV 02/04/20 [place] MVP, MONET, Chest PainECG TodayStress 02/17/20ECHO 02/17/20ECG 02/04/20 Reason Comments Follow Up Denies cardiac kenneth rns Specialty Diagnoses / Procedures Referred By Contac t Referred To Contact Radiology Diagnoses Muscle weakness (generalized) Other cervical disc degeneration, unspecified cervical region Cervicalgia Procedures MR cervical spine wo IV contrast Salvatore Lock MD [address] [place] [address] Referral ID Status Reason Start Date Expiration Date Visits Requested Visits Authorized [id number] Authorized Perform Procedure 3 08/20/2023 1 1 Reason Comments Established Patient Follow-Up 6 month fo llow upLOV 01/08/23 MILD MITRAL REGURGITATION , MVPEKG 01/08/23ECHO 02/11/23 Pt having left chest pain since trip in [place]. Comes and goes, SOB, sharp/ache, unsure how long episodes last. Reason Comments Follow Up Reason Onset Date Comments Med Refill 03/09/2024 Reason Comments Appointment Cancelled Reason Comments Pain Reason Comments Follow Up Intermittent chest p ain Care Teams (unrecognized sec tion and content) Buggy Runner Relationship Specialty Start Date End Date Salvatore Lock MD [address] [facility] [place] [address] (Fax) PCP - General Family Practice 01/11/17 Buggy Runner Relationship Specialty Start Date End Date Salvatore Lock MD [address] [facility] [place] [address] (Fax) PCP - General Family Practice 01/11/17 Buggy Runner Relationship Specialty Start Date End Date Salvatore Lock MD [address] [facility] [place] [address] (Fax) PCP - General Family Medicine 01/11/17 Buggy Runner Relationship Specialty Start Date End Date Salvatore Lock MD [address] [facility] [place] [address] (Fax) PCP - General Family Medicine 01/11/17 Buggy Runner Relationship Specialty Start Date End Date Salvatore Lock MD [address] [facility] [place] [address] (Fax) PCP - General Family Medicine 01/11/17 Buggy Runner Relationship Specialty Start Date End Date Salvatore Lock MD [address] [facility] [place] [address] (Fax) PCP - General Family Medicine 01/11/17 Buggy Runner Relationship Specialty Start Date End Date Salvatore Lock MD [address] [facility] [place] [address] (Fax) PCP - General Family Medicine 01/11/17 Buggy Runner Relationship Specialty Start Date End Date Salvatore Lock MD [address] [facility] [address] (Fax) PCP - General Family Medicine 01/11/17 Buggy Runner Relationship Specialty Start Date End Date Salvatore Lock MD [address] [facility] [address] (Fax) PCP - General Family Medicine 01/11/17 Buggy Runner Relationship Specialty Start Date End Date Salvatore Lock MD [address] [facility] [phone] (Fax) PCP - General Family Medicine 01/11/17 Buggy Runner Relationship Specialty Start Date End Date Salvatore Lock MD [address] [facility] [address] (Fax) PCP - General Family Medicine 01/11/17 Buggy Runner Relationship Specialty Start Date End Date Salvatore Lock MD [place] [address] [place] [address] PCP - General 07/24/19 Team Status: Active Member Role Status Dates ED HEMERY Primary Care Provider Active Team Status: Inactive Member Role Status Dates ED, [facility] Primary Care Provide r, Attending Provider, Referring Provider Active Buggy Runner Relationship Specialty Start Date End Date Salvatore Lock MD [address] [facility] [place] [address] (Fax) PCP - General Family Medicine 01/11/17 Buggy Runner Relationship Specialty Start Date End Date Salvatore Lock MD [address] [facility] [place] [address] (Fax) PCP - General Family Medicine 01/11/17 Buggy Runner Relationship Specialty Start Date End Date Salvatore Lock MD [address] [facility] [place] [address] (Fax) PCP - General Family Medicine 01/11/17 Buggy Runner Relationship Specialty Start Date End Date Salvatore Lock MD (Fax) PCP - General Family Medicine 10/31/22 Buggy Runner Relationship Specialty Start Date End Date Salvatore Lock MD [address] [place] [address] PCP - General Family Medicine 10/31/22 Buggy Runner Relationship Specialty Start Date End Date Salvatore Lock MD [address] [place] [address] PCP - General Family Medicine 10/31/22 Buggy Runner Relationship Specialty Start Date End Date Salvatore Lock MD [address] [place] [address] PCP - General Family Medicine 10/31/22 Buggy Runner Relationship Specialty Start Date End Date Salvatore Lock MD [address] [facility] [place] [address] (Fax) PCP - General Family Medicine 01/11/17 Buggy Runner Relationship Specialty Start Date End Date Salvatore Lock MD [address] [place] [address] (Fax) PCP - General Family Medicine 05/07/24 Buggy Runner Relationship Specialty Start Date End Date Salvatore Lock MD (Fax) PCP - General Family Medicine 10/31/22 Buggy Runner Relationship Specialty Start Date End Date Salvatore Lock MD [address] [place] [address] (Fax) PCP - General Family Medicine 01/11/17 Buggy Runner Relationship Specialty Start Date End Date Salvatore Lock MD [address] [place] [address] (Fax) PCP - General Family Medicine 01/11/17 Buggy Runner Relationship Specialty Start Date End Date Salvatore Lock MD (Fax) PCP - General Family Medicine 10/31/22 Buggy Runner Relationship Specialty Start Date End Date Salvatore Lock MD (Fax) PCP - General Family Medicine 10/31/22 Buggy Runner Relationship Specialty Start Date End Date Salvatore Lock MD (Fax) PCP - General Family Medicine 10/31/22 Salvatore Lock MD [address] [place] [address] (Fax) PCP - Medical [employer] 10/11/22 07/20/23 Buggy Runner Relationship Specialty Start Date End Date Salvatore Lock MD PCP - General Family Medicine 10/31/22 Goals (unrecognized section and content) Goals may be documented in a n alternate section FOR RECORDS PERTAINING TO PATIENTS WHO ARE OR HAVE BEEN ENROLLED IN A CHEMICAL DEPENDENCY/SUBSTANCEABUSE PROGRAM, SOME INFORMATION MAY BE OMITTED. This clinical summary was aggregated from multiple sources. Caution should be exercised in using it in the provision of clinical care. This summary normalizes information from multiple sources, and as a consequence, information in this document may materially change the coding, format and clinical context of patient data. In addition, data may be omitted in some cases. CLINICAL DECISIONS SHOULD BE BASED ON THE PRIMARY CLINICAL RECORDS. [employer] provides no warranty or guarantee of the accuracy or completeness of information in this document.
== END | disposition home or self-care (01) ==
LOC: US 07:16
PROVIDERS: PCP Nurse Practitioner Family; Referring Provider Nurse Practitioner Family; Visit Provider Nurse Practitioner Family
DX: R10.12 Left upper quadrant pain (principal)
CPT/HCPCS: 76705